=== PATIENT | male | born 1995 | race Caucasian/White ===

== ENCOUNTER 2016-12-29 21:06 | Emergency (ER) | payer OTHER ==
[~2016-12-29] VITALS: Ht 177.8 cm; Wt 58.6 kg
[2016-12-29 21:09] VITALS: BP 127/76
[2016-12-29] MEDS ORDERED: LIDOCAINE 1%, 20ML ONE (22:05)
[2016-12-29] MEDS ORDERED: MICROFIBRILLAR COLLAGEN 1 GM TP ONE (23:00)
== END 2016-12-29 22:43 | disposition home or self-care (01) ==
LOC: ED 22:16
DX: S61.206A Unspecified open wound of right little finger without damage to nail, initial encounter (principal); X58.XXXA Exposure to other specified factors, initial encounter; Y93.89 Activity, other specified; Y92.89 Other specified places as the place of occurrence of the external cause; Y99.8 Other external cause status
CPT/HCPCS: 99282